=== PATIENT | male | born 1995 | race Caucasian/White ===

== ENCOUNTER 2017-05-15 13:03 | Emergency (ER) | payer OTHER ==
[~2017-05-15] VITALS: Ht 170.2 cm; Wt 65.8 kg
[~2017-05-15 13:03] MED LIST: APAP/CODEINE ELI5 ML PO
[2017-05-15 13:04] VITALS: BP 115/70
[2017-05-15] MEDS ORDERED: CENTANY30 GM TRANSDERM (13:37)
== END 2017-05-15 13:50 | disposition home or self-care (01) ==
LOC: ER 13:03
DX: S80.821A Blister (nonthermal), right lower leg, initial encounter (principal); W57.XXXA Bitten or stung by nonvenomous insect and other nonvenomous arthropods, initial encounter; Y93.89 Activity, other specified; Y92.89 Other specified places as the place of occurrence of the external cause; Y99.8 Other external cause status

== ENCOUNTER 2019-08-24 10:46 | Emergency (ER) | payer OTHER ==
[~2019-08-24] VITALS: Ht 170.2 cm; Wt 70.3 kg
[~2019-08-24 10:46] MED LIST changes: +CENTANY30 GM TRANSDERM
[2019-08-24] MEDS ORDERED: IBUPROFEN 800800 M1 PO (12:02)
[2019-08-24] MEDS ORDERED: NORFLEX100 MG PO (12:02)
[2019-08-24 12:24] VITALS: BP 128/76
== END 2019-08-24 12:26 | disposition home or self-care (01) ==
LOC: ER 10:46
DX: M43.6 Torticollis (principal)